=== PATIENT | female | born 1945 | race Caucasian/White ===

== ENCOUNTER 2017-12-23 07:01 | Inpatient (IN) ==
[2017-12-23] MEDS ORDERED: Metoprolol Tartrate 25 MG Tablet PO ONE (07:36)
[2017-12-23] MEDS ORDERED: Chlorhexidine Gluconate 2% 1 Pack (2 Cloths) TOPICAL ONE (07:36)
[2017-12-23] MEDS ORDERED: Chlorhexidine 4% Topical 120 APPLIC/120 ML Bottle TOPICAL SCH (07:45)
[2017-12-23] MEDS ORDERED: Sodium Chlor 0.9% Inj 40 ML, Bupivacaine Liposo PF 1.3% Inj 20 ML P-ARTICULR SCH ×2 (07:45)
[2017-12-23] MEDS ORDERED: ceFAZolin 2 GM/NS 100 ML IV; Q8H IV.SIG SCH ×2 (08:00)
[2017-12-23] MEDS ORDERED: TRANEXAMIC ACID IV.SIG SCH (08:00)
[2017-12-23] MEDS ORDERED: Sodium Chlor 0.9% Inj 500 ML IV.SIG SCH (08:00)
[2017-12-23] MEDS ORDERED: SODIUM CHLOR 0.9% IV.SIG SCH (08:00)
[2017-12-23] MEDS ORDERED: Vancomycin Inj 1,000 MG in Sodium Chlor 0.9% Inj 250 ML IV.SIG SCH (08:00)
[2017-12-23] MEDS ORDERED: ceFAZolin 2 GM Premix Inj 2 GM/100 ML BAG IV.SIG ONE (08:14)
[2017-12-23] MEDS ORDERED: Dexamethasone Inj 20 MG/5 ML Vial ONE (08:24)
[2017-12-23] MEDS ORDERED: Dexamethasone Inj 20 MG/5 ML Vial IV.PUSH SCH (08:45)
[2017-12-23] MEDS ORDERED: Ketamine Inj 500 MG/10 ML Vial ONE (09:29)
[2017-12-23] MEDS ORDERED: Propofol Inj 500 MG/50 ML Vial ONE ×2 (09:31→12:13)
[2017-12-23] MEDS ORDERED: fentaNYL Citrate Inj 100 MCG/2 ML Ampul ONE (09:31)
[2017-12-23] MEDS ORDERED: Bupivacaine/Dextrose 0.75% Inj 2 ML Ampul ONE (09:32)
[2017-12-23] MEDS ORDERED: Famotidine PF Inj 20 MG/2 ML Vial ONE (09:32)
[2017-12-23] MEDS ORDERED: Phenylephrine/NS 1000 MCG/10ML Syringe IV.PUSH ONE (10:30)
[2017-12-23] MEDS ORDERED: Bisacodyl 10 MG Supp RECTAL PRN (12:27)
[2017-12-23] MEDS ORDERED: Post-op Orders (for Pharmacy) OTHER STA (12:27)
[2017-12-23] MEDS ORDERED: TRANEXAMIC ACID IV.SIG ONE (12:27)
[2017-12-23] MEDS ORDERED: SODIUM CHLOR 0.9% IV.SIG ONE (12:27)
[2017-12-23] MEDS ORDERED: Morphine Inj 4 MG/ML Vial IV.PUSH PRN (12:27)
[2017-12-23] MEDS ORDERED: Aluminum/Magnesium/Simethacone Susp 30 ML UDC PO PRN (12:27)
--- NOTE | 2017-12-23 12:29 | P.OP ---
- Preoperative Diagnosis (1) Osteoarthritis of right hip - Postoperative Diagnosis (1) Osteoarthritis of right hip Date of procedure: 12/23/17 Procedure: Right total hip arthroplasty Anesthesia: spinal Surgeon: Jamey Morin MD Protective Signal Operations Supervisor: CHRISTI Swartz The surgical procedure was assisted by my Advanced Registered Nurse Practitioner. My HEADWAITRESS presence was necessary throughout this case for the manipulation and positioning of the surgical extremity. My HEADWAITRESS was assisting me throughout the duration of this procedure. The skill set of an Advance Registered Nurse Practitioner was medically necessary to complete this procedure. During the surgical case, the surgical assistant certified was working at the back table and the Advance Registered Nurse Practitioner was directly assisting me. Operation and Findings: IMPLANT DESCRIPTION: 1. [place] Gription Cup, acetabular size 50. 2. [place] AltrX polyethylene, neutral. 4. [place] femoral stem size 11, no collar, standard offset. 5. Femoral head/neck metal, 32, +5. ESTIMATED BLOOD LOSS: 150 cc. JUSTIFICATION FOR PROCEDURE: The patient has end-stage osteoarthritis to the hip. There is an attached conservative measures pathway form in the chart that describes the nonoperative measures that were undertaken prior to consideration of surgical management. The patient understood the risks and benefits of surgical management. See my office notes for further details. PROCEDURE: The patient was brought back to the operative theatre. Adequate anesthesia was obtained. The patient received intravenous Ancef and vancomycin. The patient was carefully placed on the operative table. The lower extremity was prepped and draped in the usual sterile fashion. Fluoroscopic images were obtained. We made a standard anterior incision over the hip. We dissected through the TFL fascia, exposing the anterior capsule. Arthrotomy was performed in a T-shaped fashion. The capsule was tagged with a #2 FiberWire. End-stage arthritis was identified. Osteotomy was performed through the femoral neck exposing the acetabulum. Remnants of the labrum were resected and osteophytes were removed. We sequentially reamed the acetabulum. We trialed the hip and placed the final cup into position. This was done under fluoroscopic guidance to obtain the appropriate inclination and anteversion. A manhole cover was placed into the acetabular component. We then placed the final polyethylene into position and confirmed that it was well seated. Capsular attachments on the calcar and the inner aspect of the greater trochanter were resected. On the proximal aspect of the femur we used a rongeur , box osteotome, canal finder, sequential broaches and lateralizing rasp. We calcar planed the proximal femur. Then thoroughly irrigated the wound. We trialed the hip with the appropriate size stem. We placed the final stem in to position and trialed again. The hip was stable while it was externally rotated 70 degrees when the leg was lowered to the floor. The final head was applied, and final fluoroscopic images were obtained. The wound was thoroughly irrigated again. Interarticular injection of liposomal bupivacaine was given. The capsule was closed with #2 FiberWire and #1 Vicryl. The deep fascia was closed with a #2 Stratafix, followed by 2-0 Vicryl in the skin and Dermabond dressing. Postop plan is to weight-bear as tolerated. DVT prophylaxis will be performed with SCDs, TERA rizzo, early mobilization, and Lovenox followed by aspirin.
--- NOTE | 2017-12-23 13:21 | XR ---
EXAM DATE: 12/23/2017 1:18 PM EDT AGE/SEX: 72 years / Female INDICATIONS: Right anterior hip replacement done in operating room. CLINICAL DATA: This is the patient's initial encounter. Patient reports that signs and symptoms have been present for 1 day and indicates a pain score of Nonresponsive. MEDICAL/SURGICAL HISTORY: Non-responsive. Non-responsive. COMPARISON: No prior exams available for comparison. FINDINGS: 3 magnified C-arm spot views are centered over the hip joint and labeled right. These show a total hi p prosthesis in good position. Air is noted within the joint space. No gross fracture observed. CONCLUSION: Limited images as detailed above. Electronically signed by: Jero Kaur MD 12/23/2017 1:20 PM EDT
--- NOTE | 2017-12-23 13:56 | XR ---
EXAM DATE: 12/23/2017 1:48 PM EDT AGE/SEX: 72 years / Female INDICATIONS: Post op total right hip replacement. CLINICAL DATA: This is the patient's initial encounter. Patient reports that signs and symptoms have been present for 1 day and indicates a pain score of 0/10. MEDICAL/SURGICAL HISTORY: None. Total knee replacement, left. Total knee replacement, right. COMPARISON: POI, MR HIP W/O CONTRAST, RIGHT, 07/01/2017. . FINDINGS: Right total hip arthroplasty. There is a small amount of subcutaneous air adjacent to the right hip. Femoral and acetabular components appear well seated. No fractures. CONCLUSION: Right hip arthroplasty. Electronically signed by: Bishop Munoz MD 12/23/2017 1:55 PM EDT
--- NOTE | 2017-12-23 15:10 | P.DCO ---
- Physical Therapy Physical Therapy: Gait training, Transfer training, bed to chair Right Lower Extremity Weight Bearing: Weight bearing as tolerated Right Lower Extremity Range of Motion: Active ROM - Nursing Nursing: Lisset cyr Dressing changes: Do not change dressing Additional instructions: First dressing change in the office - Certification Need for Home Health services: I have seen patient Sol Pa on 12/23/17. My clinical findings support the need for the requested home health care services because: Need for Home Health Services: Limited ability to care for self, High risk of falls Homebound Certification: I certify that my clinical findings support that this patient is homebound because: Homebound Certification: Post-op weakness, Unsteady gait/balance
[2017-12-23] MEDS ORDERED: Zolpidem Tartrate 5 MG Tablet PO PRN (21:00)
[2017-12-23] MEDS: Multivitamin/Minerals Therapeutic Tablet PO SCH (21:29)
[2017-12-23] MEDS: Senna/Docusate Sodium 8.6/50 MG Tablet PO SCH (21:29)
[2017-12-24] MEDS: Sod Chloride 0.9% Inj 1,000 ML IV.CONT SCH ×2 (04:43→13:52)
[2017-12-24] MEDS: Levothyroxine 100 MCG Tablet PO SCH (06:10)
[2017-12-24 06:15] LABS: Hematocrit 29.6 % (35.0-46.0); Hemoglobin 10.4 gm/dL (11.6-15.3)
--- NOTE | 2017-12-24 07:27 | P.PNOP ---
Subjective Interval history: The patient is resting in bed in no acute distress. The patient is very happy with her surgery. The patient does have some anxiety about whether she is ready for discharge today. Physical Exam Vital signs: Vital Signs 12/23/17 07:57 12/23/17 12:53 12/23/17 13:00 Temperature 99.2 F 97.3 F L Pulse Rate 70 76 74 Respiratory Rate 20 14 14 Blood Pressure 152/70 H 123/58 L 123/59 L Pulse Oximetry 99 98 99 12/23/17 13:15 12/23/17 13:30 12/23/17 13:45 Temperature 97.4 F L Pulse Rate 71 71 69 Respiratory Rate 14 14 14 Blood Pressure 133/57 L 141/63 H 130/59 L Pulse Oximetry 97 97 98 12/23/17 14:20 12/23/17 15:49 12/23/17 16:15 Temperature 97.2 F L 97.5 F L Pulse Rate 75 87 Respiratory Rate 18 18 20 Blood Pressure 154/72 H 151/70 H Pulse Oximetry 97 98 12/23/17 20:00 12/23/17 21:29 12/24/17 00:00 Temperature 98.1 F 97.8 F Pulse Rate 91 H 65 Respiratory Rate 16 18 16 Blood Pressure 156/56 H 131/62 Pulse Oximetry 97 95 12/24/17 04:00 Temperature 97.8 F Pulse Rate 65 Respiratory Rate 18 Blood Pressure 120/58 L Pulse Oximetry 96 Intake & Output 12/23/17 12/24/17 12/24/17 18:59 06:59 18:59 Intake Total 2819.07 / 2819.07 200 / 200 Output Total 150 / 150 Balance 2669.07 / 2669.07 200 / 200 Weight 90.7 kg 90.72 kg Intake: IV 839.07 / 839.07 200 / 200 LR 1000 mL Inj 1,000 ML @ 30 280 / 280 mls/hr IV.SIG .Q24H RODOLFO Rx#: [id number] Cyklokapron Inj 907 MG In NS 109.07 / 109.07 Inj 100 ML @ 200 mls/hr IV.SIG ONCE RODOLFO Rx#:[id number] Vancomycin Inj 1,000 MG In NS 250 / 250 Inj 250 ML @ 250 mls/hr IV.SIG BUILDING ASSOCIATE RODOLFO Rx#:[id number] Ancef 2 GM Premix Inj 2 gm In 100 / 100 100 ml @ 0 mls/hr IV.SIG .STK- MED ONE Rx#:[id number] Ancef Inj 1,000 MG In NS Inj 100 / 100 200 / 200 100 ML @ 200 mls/hr IV.SIG Q6H RODOLFO Rx#:[id number] Oral 480 / 480 Anesthesia Amount 1500 / 1500 Output: Estimated Blood Loss 150 / 150 Other: # Voids 2 2 Date of Last Bowel Movement 12/23/17 12/23/17 # Bowel Movements 0 Weight On Admission 90.7 kg Narrative: The patient's dressing is clean, dry, and intact. EHL/TA/G are intact. 2+ pedal pulse. The patient's calf is soft and nontender. Sensation is intact to light touch distally. Results - Labs CBC & Chem 7: 12/24/17 05:34 Laboratory Results - last 24 hr 12/23/17 12/24/17 08:10 05:34 Hgb 10.4 L Hct 29.6 L Blood Type A Positive Blood Type Recheck Required Antibody Screen Negative - Imaging Impressions Hip X-Ray 12/23/17 00:00 CONCLUSION: Limited images as detailed above. Hip X-Ray 12/23/17 12:26 CONCLUSION: Right hip arthroplasty. - Procedures Right total hip arthroplasty Assessment and Plan - Problem List (1) Status post total hip replacement, right Code(s): Z96.641 - Presence of right artificial hip joint Status: Acute (2) Osteoarthritis of right hip Code(s): M16.11 - Unilateral primary osteoarthritis, right hip Status: Acute - Assessment and Plan POD #1: [Right] total hip arthroplasty 1. Weightbearing as tolerated on [right] lower extremity. 2. Lovenox followed by aspirin for DVT prophylaxis. 3. Ice as needed for swelling. 4. Stable per ortho for discharge to home health today or tomorrow. 5. The patient will follow up with Dr. Morin and/or CHRISTI Lopez as previously scheduled.
[2017-12-24] MEDS ORDERED: Dexamethasone Inj 20 MG/5 ML Vial IV.PUSH ONE (08:00)
[2017-12-24] MEDS: Multivitamin/Minerals Therapeutic Tablet PO SCH ×2 (08:34→23:04)
[2017-12-24] MEDS: hydroCHLOROthiazide 25 MG Tablet PO SCH (08:34)
[2017-12-24] MEDS: Senna/Docusate Sodium 8.6/50 MG Tablet PO SCH ×2 (08:34→23:04)
[2017-12-24] MEDS ORDERED: Enoxaparin Inj 40 MG/0.4 ML Syringe SQ SCH (12:00)
[2017-12-24 19:57] VITALS: RESP 18
[2017-12-25 00:56] VITALS: BP 146/67; PULSE 63; TEMP 97.1; O2SAT 96
[2017-12-25] MEDS: Sod Chloride 0.9% Inj 1,000 ML IV.CONT SCH (06:15)
[2017-12-25] MEDS: Levothyroxine 100 MCG Tablet PO SCH (06:19)
[2017-12-25 07:03] LABS: Hemoglobin 10.7 gm/dL (11.6-15.3)
[2017-12-25] MEDS: hydroCHLOROthiazide 25 MG Tablet PO SCH (09:14)
[2017-12-25] MEDS: Senna/Docusate Sodium 8.6/50 MG Tablet PO SCH (09:15)
[2017-12-25] MEDS: Multivitamin/Minerals Therapeutic Tablet PO SCH (09:15)
--- NOTE | 2017-12-27 20:57 | P.DS ---
Date of admission: 12/23/17 07:01 Primary care physician: UNKNOWN Attending physician on discharge: Jamey Islas Anticipated date of discharge: 12/25/17 Brief History from admission: The patient was admitted to the hospital with severe osteoarthritis of the right hip to have a right total hip arthroplasty. DS: Diagnosis - Discharge Diagnosis (1) Status post total hip replacement, right Status: Acute (2) Osteoarthritis of right hip Status: Acute DS: Summary Hospital Course: The patient was admitted to the hospital for severe osteoarthritis of the [right ] hip to have a [right] total hip arthroplasty. The patient's surgery went well with no complication. The patient is on a [regular] diet. The patient's DVT prophylaxis includes use of [Lovenox followed by aspirin]. The patient is weightbearing as tolerated. The patient was discharged [home with home health] and will follow up in the office with Dr. Islas and/or CHRISTI Lopez as previously scheduled. - Time Spent with Patient Total time spent providing and/or coordinating discharge services: Greater than 30 minutes - Quality: VTE Deep Vein Thrombosis/Pulmonary Embolism Present on Admission: No Exam Narrative: See last progress note for physical exam Results Procedures completed during hospitalization: Right total hip arthroplasty - Impressions ITS Impressions Hip X-Ray 12/23/17 12:26 CONCLUSION: Right hip arthroplasty. Discharge Plan - Discharge Disposition Patient Disposition: W/Home Health Service - Discharge Condition Condition: Stable - Discharge Order Discharge Orders: Discharge Order (Routine); Ordered 12/23/17 Ordered By: Julius Bryan - Discharge Details Anticipated Discharge Date: 12/24/17 - Physicians Team Primary Care Provider: UNKNOWN, Attending Provider: Jamey Islas Other Providers: Pharmly,Insurance - Rxs /Orders / Referrals /Forms Prescriptions: Continue esomeprazole magnesium 40 mg Capsule,Delayed Release(Dr/Ec) 40 mg PO BID hydrochlorothiazide 25 mg Tablet 25 mg PO DAILY levothyroxine 100 mcg Tablet 100 mcg PO DAILY magnesium oxide [MagOx] 400 mg Tablet 400 mg PO DAILY simvastatin 20 mg Tablet 20 mg PO DAILY Discontinued acetaminophen [Tylenol] 325 mg Tablet 650 mg PO Q4-6H PRN (Reason: Pain) aspirin [Adult Low Dose Aspirin] 81 mg Tablet,Delayed Release (Dr/Ec) 81 mg PO DAILY coenzyme Q10 [Ultra CoQ10] 75 mg Capsule 75 mg PO DAILY omega 7-kjy-fck-fish oil [[place]-3] 350 mg-235 mg- 90 mg-597 mg Capsule, Delayed Release(Dr/Ec) 1 cap PO DAILY tramadol 50 mg Tablet 50 mg PO Q4-6H PRN (Reason: Pain) Ambulatory Orders / Order Sets / DME: Adjustable Commode 3-in-1 (1 each) (Routine) Location: Determined by Patient Ordered By: Julius Bryan Walker With Front Wheels (1 each) (Routine) Location: Determined by Patient Ordered By: Julius Bryan Referrals: JILL CONNER [Other] - See Instructions Jamey Islas MD [Physician] - See Instructions (Follow-up in the office with Dr. Islas or CHRISTI Lopez as previously scheduled Your appointment has been scheduled for 01/07/18 at 9:45am If you cannot make this appointment, please call the office to reschedule ) UNKNOWN, [Primary Care Provider] - See Instructions - Discharge Instructions Patient Printed Instructions: Laxative, Stool Softeners (By mouth), How to Choose and Use a Walker (GEN), How to Use a Bedside Commode (GEN), Narcotic Pain Management (DC), Surgical Site Infections (DC), How To Wash Your Hands (DC) , Fall Prevention (DC), Total Hip Replacement (DC), How to Transfer a Person Safely (DC) Additional Instructions: DO NOT REMOVE DRESSING FOLLOW UP WITH DR. ISLAS SCHEDULED TAKE MEDICATIONS PRESCRIBED IN CASE OF EMERGENCY CALL 911 OR RETURN TO [facility] NO STRENUOUS ACTIVITY WEIGHT BEARING TOLERATED - Post Discharge Care Plan Care Plan Goals: Discharge Care Plan Goals for Total Hip Replacement You had a hip replacement surgery. This means your natural hip was replaced with an artificial joint (prosthesis). You may be recovering at home or in a rehabilitation facility. Either way, you must take care of your new hip. Here are some goals to help you heal well. Directions to Meet your Goals: 1. Activity & Exercises: * Take pain medicine as directed by your doctor. * Dont drive until your doctor says its OK. And never drive while taking opioid pain medicine. * Wear the support stockings you were given in the hospital as directed by your surgeon. * Dont sit for more than 30 to 45 minutes at one time. * Dont lean forward while sitting. * Dont cross your legs. * Keep your feet flat on the floor. Dont turn your foot or leg inward. This stresses your hip joint. * Use an elevated toilet seat for 6 weeks after surgery. * Nap if you are tired, but dont stay in bed all day. * Sit on a firm cushion when you ride in a car and avoid sitting too low. Try not to bend your hip too much when getting in and out of the car. 2. Prevent Falls/Injury: * Follow your doctors orders regarding how much weight to put on the affected leg. * Dont bend at the hip when you bend over. Don't bend at the waist to put on socks and shoes. And avoid picking up items from the floor. * Use a cane, crutches, a walker, or handrails until your balance, flexibility, and strength improve. And remember to ask for help from others when you need it. * Free up your hands so that you can use them to keep balance. Use a mario alberto pack , apron, or pockets to carry things. * Arrange your household to keep the items you need handy. Keep everything else out of the way. * Remove items that may cause you to fall, such as throw rugs and electrical cords. * Use nonslip bath mats, grab bars, an elevated toilet seat, and a shower chair in your bathroom * Sit on a shower stool or chair when you shower to keep from falling. 3. Precautions: * Prevent infection. Any infection will need to be treated immediately. Call your doctor right away if you think you might have an infection. * Tell your dentist that you have an artificial joint and take antibiotics as prescribed before any dental work. * Tell all your healthcare providers about your artificial joint before any medical procedure. * Maintain a healthy weight. Get help to lose any extra pounds. Added body weight puts stress on the joints. 4. Incision Care: * Prevent infection by washing your hands often. If an infection occurs, it will need to be treated right away. * Call your doctor right away if you think you may have an infection. Symptoms include a fever or an incision that leaks white, green, or yellow fluid. * Don't soak your incision in water until your doctor says its OK. This means no hot tubs, bathtubs, or swimming pools. * Follow your doctor's instructions for changing the dressing. * Dont rub the incision, or apply creams or lotions to it. * If you notice any redness or drainage around the bandage site, contact your surgeon's office immediately. 5. Follow-Up: Do Not miss your follow-up appointment. Keep up with all your appointments and yearly check ups When to call your doctor: Call your doctor right away if you have: Hip pain gets worse Pain or swelling in your calf or leg not related to your incision Tenderness or redness in your calf Fever of 100.4F (38C) or higher, or as directed by your healthcare provider Shaking chills Swelling or redness at the incision site gets worse Fluid draining from the incision Call 911: Call 911 right away if you have: Chest pain Shortness of breath Any pain or tenderness in your calf
== END 2017-12-25 10:03 | disposition home health service (06) ==
LOC: HSDI 07:01 → N06 13:59
PROVIDERS: ADMIT Orthopaedic Surgery; ATTEND Orthopaedic Surgery